=== PATIENT | male | born 1980 | race Two or more races ===

== ENCOUNTER 2017-02-09 05:35 | Emergency (ER) | payer BC ==
--- NOTE | 2017-02-09 06:01 | EDM.PDOC ---
<Darien Wong - Last Filed: 02/09/17 06:30> ED HPI GENERAL MEDICAL PROBLEM - General Stated Complaint: BACK PAIN Time Seen by Provider: 02/09/17 05:55 Source of Information: Reports: Patient History Limitations: Reports: No Limitations - History of Present Illness INITIAL COMMENTS - FREE TEXT/NARRATIVE: 37-year-old male, speaks only Kazakh has been struggling with right-sided flank pain for the past 2 days. No complaints of dysuria but he does have a fever. Pain is somewhat worse with movement. No previous episodes of similar pain. 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 Denies: Shortness of Breath GI/Abdominal: Denies: Abdominal Pain, Nausea, Vomiting Musculoskeletal: Reports: Back Pain Skin: Reports: No Symptoms Neurological: Reports: Headache (Slight headache) ED EXAM, GENERAL - Physical Exam Exam: See Below Exam Limited By: No Limitations General Appearance: Alert, No Apparent Distress Respiratory/Chest: No Respiratory Distress, Lungs Clear Cardiovascular: Regular Rate, Rhythm GI/Abdominal: Non-Tender Back Exam: No: CVA Tenderness (R), CVA Tenderness (L) Neurological: Alert, Oriented Psychiatric: Normal Affect, Normal Mood Skin Exam: Warm, Dry Course - Vital Signs Last Recorded V/S: Last Vital Signs Temp 100.8 F H 02/09/17 05:45 Pulse 104 H 02/09/17 05:45 Resp 16 02/09/17 05:45 BP 115/77 02/09/17 05:45 Pulse Ox 100 02/09/17 05:45 - Orders/Labs/Meds Labs: Laboratory Tests 02/09/17 02/09/17 02/09/17 Range/Units 06:07 06:07 06:46 WBC 9.7 (4.5-11.0) K/uL RBC 4.86 (4.30-5.90) M/uL Hgb 14.2 (12.0-15.0) g/dL Hct 42.1 (40.0-54.0) % MCV 87 (80-98) fL MCH 29 (27-31) pg MCHC 34 (32-36) % Plt Count 232 (150-400) K/uL Neut % (Auto) 50 (36-66) % Lymph % (Auto) 39 (24-44) % [place] % (Auto) 10 H (2-6) % Eos % (Auto) 1 L (2-4) % Baso % (Auto) 0 (0-1) % Sodium 136 L (140-148) mmol/L Potassium 3.9 (3.6-5.2) mmol/L Chloride 101 (100-108) mmol/L Carbon Dioxide 28 (21-32) mmol/L Anion Gap 10.9 (5.0-14.0) mmol/L BUN 23 H (7-18) mg/dL Creatinine 1.6 H (0.8-1.3) mg/dL Est Cr Clr Drug Dosing 63.83 mL/min Estimated GFR (MDRD) 49 L (>60) Glucose 116 H (74-106) mg/dL Calcium 9.0 (8.5-10.1) mg/dL Total Bilirubin 0.4 (0.2-1.0) mg/dL AST 19 (15-37) U/L ALT 37 (12-78) U/L Alkaline Phosphatase 83 (46-116) U/L Total Protein 7.9 (6.4-8.2) g/dL Albumin 3.9 (3.4-5.0) g/dL Globulin 4.0 H (2.3-3.5) g/dL Albumin/Globulin Ratio 1.0 L (1.2-2.2) Urine Color Yellow Urine Appearance Clear Urine pH 6.0 (4.5-8.0) Ur Specific Kirby 1.015 (1.008-1.030) Urine Protein Negative (NEGATIVE) mg/dL Urine Glucose (UA) Normal (NEGATIVE) mg/dL Urine Ketones Negative (NEGATIVE) mg/dL Urine Occult Blood Negative (NEGATIVE) Urine Nitrite Negative (NEGAITVE) Urine Bilirubin Negative (NEGATIVE) Urine Urobilinogen Normal (NORMAL) mg/dL Ur Leukocyte Esterase Negative (NEGATIVE) Urine RBC Not seen (0-5) Urine WBC 0-5 (0-5) Ur Epithelial Cells Rare Amorphous Sediment Not seen Urine Bacteria Not seen Urine Mucus Not seen Meds: Medications Discontinued Medications Generic Name Dose Route Start Last Admin Trade Name Dmitri PRN Reason Stop Dose Admin Ketorolac Tromethamine 60 mg 02/09/17 07:08 02/09/17 07:13 Toradol IM 02/09/17 07:09 60 mg ONETIME ONE Administration - Re-Assessments/Exams Free Text/Narrative Re-Assessment/Exam: 02/09/17 06:31 CBC and BMP were obtained. A UA was also attempted and was pending at time of dictation. Departure - Departure Disposition: Home, Self-Care 01 Clinical Impression: Low back pain Qualifiers: Chronicity: acute Back pain laterality: right Sciatica presence: without sciatica Qualified Code(s): M54.5 - Low back pain - Discharge Information Referrals: PCP,None [Primary Care Provider] - Additional Instructions: Use ibuprofen as needed for pain control, Please followup with your primary care provider in 3-5 days if not better, please call return to the emergency department with worsening of symptoms. <Offic[place] - Last Filed: 02/09/17 07:53> Departure - Departure Time of Disposition: 07:53 Condition: Good - Assessment/Plan Plan: Assessment Acuity = acute Site and laterality = low back pain Etiology = probable lifting injury Manifestations = none Location of injury = Home Lab values = [CBC, CMP, urinalysis unremarkable Plan He had good relief with Toradol injection, plan is to discharge to home use ibuprofen 600 mg 1 tab by mouth 3 times a day when necessary follow-up with primary care 3-5 days for reevaluation Patient was in agreement with the plan all questions were answered, they were instructed to return to the emergency department or call for worsening symptoms. This note was dictated using [employer] voice recognition software please call with any questions.
[2017-02-09] MEDS ORDERED: Ketorolac 60 MG/2 ML SDV IM ONE (07:08)
== END 2017-02-09 08:05 | disposition home or self-care (01) ==
LOC: JP.ED 05:35
DX: M54.5 Low back pain (principal)
CPT/HCPCS: 36415; 80053; 81001; 85025; 96372; 99284; J1885